=== PATIENT | female | born 1960 ===

== ENCOUNTER 2018-09-28 08:30 | Emergency (ER) | payer OTHER ==
[~2018-09-28] VITALS: Ht 157.5 cm; Wt 80.7 kg
[~2018-09-28 08:30] MED LIST: ADVIL100 MG PO; NEURONTIN600 MG PO; PARAFON FORTE500 MG PO
[2018-09-28] MEDS ORDERED: LISINOPRIL20 MG PO (08:44)
[2018-09-28] MEDS ORDERED: METOPROLOL ER-1 EACH PO (08:45)
== END 2018-09-28 11:26 | disposition home or self-care (01) ==
LOC: ER 08:30
DX: S80.01XA Contusion of right knee, initial encounter (principal); W18.39XA Other fall on same level, initial encounter; Y93.89 Activity, other specified; Y92.098 Other place in other non-institutional residence as the place of occurrence of the external cause; Y99.8 Other external cause status